=== PATIENT | female | born 1940 | race Two or more races ===

== ENCOUNTER 2017-01-15 14:34 | Emergency (ER) | payer OTHER, MEDICAID ==
[2017-01-15 14:58] VITALS: BP 155/62
== END 2017-01-15 15:24 | disposition home or self-care (01) ==
LOC: ER 14:34
DX: J02.9 Acute pharyngitis, unspecified (principal); H66.3X1 Other chronic suppurative otitis media, right ear; E11.9 Type 2 diabetes mellitus without complications; Z90.49 Acquired absence of other specified parts of digestive tract

== ENCOUNTER 2018-06-30 04:15 | Emergency (ER) | payer OTHER, MEDICAID ==
[~2018-06-30] VITALS: Ht 154.9 cm; Wt 59.0 kg
[2018-06-30 04:29] VITALS: BP 169/74
[2018-06-30] MEDS ORDERED: PROMETHAZINE W/CODEINE 5 ML ORAL SYRUP PO ONE (05:15)
[2018-06-30] MEDS ORDERED: ALBUTEROL SULF 2.5 MG/0.5ML(0.5%) NEB SOLN NEB ONE (05:15)
[2018-06-30] MEDS ORDERED: DEXAMETHASONE SOD PHOS 10MG/1ML VIAL INJ IM ONE (05:15)
[2018-06-30] MEDS ORDERED: cefTRIAXone SOD 1,000 MG VL IM ONE (05:15)
[2018-06-30] MEDS ORDERED: IPRATROPIUM BROM 0.5 MG/2.5ML INH SOL NEB ONE (05:15)
== END 2018-06-30 05:28 | disposition home or self-care (01) ==
LOC: ER 04:15
DX: J02.9 Acute pharyngitis, unspecified (principal); J30.9 Allergic rhinitis, unspecified; E11.9 Type 2 diabetes mellitus without complications
CPT/HCPCS: 94640; 96372; 99284; J0696; J1100; J7611; J7644

== ENCOUNTER 2019-09-17 00:37 | Emergency (ER) | payer MEDICAID, OTHER ==
[~2019-09-17] VITALS: Ht 152.4 cm; Wt 56.7 kg
[2019-09-17 02:03] LABS: Basophils # (auto) 0 uL; Basophils % (auto) 0.4 % (0.0-2.0); Eosinophils # (auto) 0.2 uL; Eosinophils % (auto) 2.3 % (0.0-7.0); Hematocrit 30.8 % (36.0-46.0); Hemoglobin 10.4 g/dL (12.2-16.2); Lymphocytes # (auto) 2.6 uL; Lymphocytes % (auto) 33.6 % (10.0-50.0); Mean Corpuscular Hemoglobin 28.3 pg (28.0-32.0); Mean Corpuscular Hgb Conc. 33.7 g/dL (32.0-36.0); Monocytes # (auto) 0.9 uL; Monocytes % (auto) 11.8 % (0.0-12.0); Neutrophils # (auto) 4.1 uL; Neutrophils % (auto) 51.9 % (37.0-80.0); Nucleated Red Blood Cells % 0.1 %; Platelet Count (auto) 354 10^3/uL (140-450); Red Blood Cells 3.67 10^6/uL (4.0-5.20); Red Cell Distribution Width 13.9 % (11.8-14.3); White Blood Cell 7.8 10^3/uL (4.4-10.8)
[2019-09-17 02:20] LABS: INR 0.99 (0.9-1.15); Partial Thromboplastin Time 30.8 sec (23.64-32.05)
[2019-09-17 02:25] LABS: Urine Bacteria NONE SEEN /hpf (None Seen); Urine Blood Negative /uL (Negative); Urine Specific Gravity 1.006 (1.001-1.035); Urine WBC <1 /hpf (0 - 5)
[2019-09-17 02:25] LABS: Alanine Aminotransferase 21 U/L (13-56); Albumin 3.5 g/dL (3.4-5.0); Amylase 41 U/L (25-115); Anion Gap 9 (5-15); Aspartate Aminotransferase 16 U/L (15-37); BUN/Creatinine Ratio 22.7; Blood Urea Nitrogen 15 mg/dL (7-18); Calcium 8.5 mg/dL (8.5-10.1); Carbon Dioxide 26 mmol/L (21-32); Chloride 98 mmol/L (98-107); GFR African American 112 mL/min; GFR Non-African American 92 mL/min; Glucose 131 mg/dL (74-106); Lipase 82 U/L (73-393); Potassium 4.2 mmol/L (3.5-5.1); Sodium 133 mmol/L (136-145)
[2019-09-17 02:30] LABS: Alkaline Phosphatase 100 U/L (45-117); Bilirubin, Total 0.1 mg/dL (0.2-1.0); Total Protein 7.4 g/dL (6.4-8.2)
[2019-09-17 07:25] VITALS: BP 138/50
== END 2019-09-17 08:11 | disposition home or self-care (01) ==
LOC: ER 00:47
DX: I10 Essential (primary) hypertension (principal); E11.9 Type 2 diabetes mellitus without complications; D63.8 Anemia in other chronic diseases classified elsewhere; R10.84 Generalized abdominal pain; R11.2 Nausea with vomiting, unspecified; R30.0 Dysuria
CPT/HCPCS: 36415; 74176; 80053; 81001; 82150; 83690; 84484; 85025; 85610; 85730; 93005

== ENCOUNTER 2024-01-09 10:28 | Emergency (ER) | payer OTHER ==
[~2024-01-09] VITALS: Ht 152.4 cm; Wt 52.6 kg
[2024-01-09 11:29] VITALS: BP 184/76; PULSE 85; RESP 18; TEMP 97.9; O2SAT 98
[2024-01-09] MEDS: ACETAMINOPHEN 325 MG TAB PO ONE (12:02)
[2024-01-09] MEDS ORDERED: ACET-1080 PO (12:10)
== END 2024-01-09 12:21 | disposition home or self-care (01) ==
LOC: ER 10:28
DX: S82.042A Displaced comminuted fracture of left patella, initial encounter for closed fracture (principal); I10 Essential (primary) hypertension; E11.9 Type 2 diabetes mellitus without complications; Z98.890 Other specified postprocedural states; Z79.899 Other long term (current) drug therapy; W18.39XA Other fall on same level, initial encounter; Y93.89 Activity, other specified; Y92.89 Other specified places as the place of occurrence of the external cause; Y99.8 Other external cause status
CPT/HCPCS: 29505; 73562